=== PATIENT | male | born 1950 | race Caucasian/White ===

== ENCOUNTER 2019-12-14 10:45 | Outpatient (CLI) | payer MEDICARE, BC, SELFPAY ==
--- NOTE | 2019-12-14 11:30 | NEURO_ITS ---
TEST: ELECTROENCEPHALOGRAM DIAGNOSIS: DEMENTIA PATIENT NUMBER: [id number] EEG NUMBER: [id number] RECORDING DATE: 12/14/19 CLINICAL HISTORY: Patient states he has been having some memory issues. CONDITION OF RECORDING: Awake, drowsy and sleep EEG DESCRIPTION: The whole record consists of diffused low voltage 6-7hz theta mixed with intermittent 3-4hz delta activity and superimposed by low voltage 15- 18hz beta activity. Photic stimulation produced poor drive. Bilateral symmetrical sleep activity is seen during sleep. Nonparoxysmal. Nonfocal. Nonlateralizing. IMPRESSION: Abnormal record due to the presence of theta and delta activity bilaterally; suggestive of underlying organic or metabolic encephalopathy or the neurodegenerative process. Clinical correlation recommended. [facility]
== END 2019-12-14 10:46 | disposition home or self-care (01) ==
LOC: ANHNEURO 10:47
PROVIDERS: PCP Nurse Practitioner Family; Visit Provider Psychiatry & Neurology Neurology
DX: F03.90 Unspecified dementia, unspecified severity, without behavioral disturbance, psychotic disturbance, mood disturbance, and anxiety (principal); R94.01 Abnormal electroencephalogram [EEG]
CPT/HCPCS: 95816

== ENCOUNTER 2020-01-18 07:53 | Outpatient (CLI) | payer MEDICARE, SELFPAY ==
--- NOTE | ~2020-01-18 | CT_ITS ---
EXAMINATION: CTA brain carotid DATE: 01/18/2020 08:46 INDICATION: Memory loss. Necrotizing vasculopathy. TECHNIQUE: Computed tomographic angiography (CTA) of the head was performed without and with 100 mL O mnipaque-350 intravenous contrast. CTA of the neck was performed with intravenous contrast. Automated exposure control and iterative reconstruction technique were employed. The dose-length product was 1 649.99 mGy-cm. Maximum intensity projection and volume rendered 3D-reconstructions were created by jorge thibodeaux technologist on a separate workstation. COMPARISON: None. FINDINGS: HEAD CTA: There are scattered areas of low attenuation in the cerebral white matter, which is within normal limits for the patient's age. There is no intracranial hemorrhage, acute infarction, or abnorm al intracranial mass lesion. The ventricles are normal in size. The orbits are normal. There is mild mucosal thickening in the paranasal sinuses. The mastoid air cells are normal. Left vertebral artery is dominant. 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 There is no significant s tenosis of basilar artery or the posterior cerebral arteries. There is mild stenosis of the intracran ial internal carotid arteries. There is no significant stenosis of the anterior or middle cerebral ar teries. Anterior communicating artery is normal. Posterior communicating arteries are not identified. There is no aneurysm. NECK CTA: There is mild emphysema. The visualized portions of the lung apices demonstrate extensive t ree-in-bud opacities and centrilobular nodules. There are no pathologically enlarged lymph nodes. The re is no significant stenosis of the cervical vertebral arteries. There is moderate stenosis of right subclavian artery proximal and distal to the vertebral artery origin. There is plaque in the proxima l internal carotid arteries. There is 0% stenosis of the proximal right internal carotid artery relat claude to normal distal artery lumen diameter (NASCET criteria). There is 5% stenosis of the proximal le ft internal carotid artery relative to normal distal artery lumen diameter. There is severe cervical spondylosis. IMPRESSION: 1. Normal aging brain. 2. 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 3. Moderate stenosis of right subclavian artery proximal and distal to the vertebral artery origin. 4. 0% stenosis of the proximal right internal carotid artery relative to normal distal artery lumen d iameter (NASCET criteria). 5. 5% stenosis of the proximal left internal carotid artery relative to normal distal artery lumen di ameter. 6. Extensive tree-in-bud opacities and centrilobular nodules in the visualized portions of the lung a pices, consistent with infection. Reviewed, dictated and finalized at location B. IMPRESSION: 1. Normal aging brain. 2. 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 3. Moderate stenosis of right subclavian artery proximal and distal to the vert ebral artery origin. 4. 0% stenosis of the proximal right internal carotid artery relative to normal distal artery lumen diameter (NASCET criteria). 5. 5% stenosis of the proximal left internal carotid artery relative to normal distal artery lumen diameter. 6. Extensive tree-in-bud opacities and centrilobular nodules in the visualized portions of the lung apices, consistent with infection.
[2020-01-18 08:34] LABS: Estimated Glomerular Filt Rate > 60
== END 2020-01-18 07:54 | disposition home or self-care (01) ==
LOC: ANHIMG 07:54
PROVIDERS: PCP Nurse Practitioner Family; Visit Provider Psychiatry & Neurology Neurology
DX: M31.9 Necrotizing vasculopathy, unspecified (principal); I65.01 Occlusion and stenosis of right vertebral artery; I65.22 Occlusion and stenosis of left carotid artery; R91.8 Other nonspecific abnormal finding of lung field
CPT/HCPCS: 36415; 70496; 70498; Q9967

== ENCOUNTER → 2021-05-08 11:51 | Outpatient (CLI) | payer MEDICARE, SELFPAY ==
--- NOTE | ~2021-05-08 | CT_ITS ---
EXAMINATION: CT brain wo con DATE: 05/08/2021 12:17 INDICATION: Headaches TECHNIQUE: Computed tomography (CT) of the head was performed without intravenous contrast. The dose- length product was 599.57 mGy-cm. Automated exposure control and iterative reconstruction technique w ere employed. COMPARISON: CT dated 01/18/2020 FINDINGS: No acute intracranial hemorrhage, infarction, mass or mass effect. No ventriculomegaly or m idline shift. Basilar cisterns are patent. There are scattered mild periventricular and subcortical w tania matter changes, most likely related to small vessel ischemic disease (microangiopathy). Paranasa l sinuses and mastoids are pneumatized. Sagittal images demonstrate a normal corpus callosum and cran iovertebral junction. Mild generalized atrophy. IMPRESSION: 1. No acute intracranial abnormality. 2: Chronic age-related findings. Reviewed, dictated and finalized at location A. TAX
== END ==
PROVIDERS: PCP Nurse Practitioner Family; Visit Provider Psychiatry & Neurology Neurology
DX: R51.9 Headache, unspecified (principal)
CPT/HCPCS: 70450